=== PATIENT | male | born 1990 | race Caucasian/White ===

== ENCOUNTER 2017-09-02 05:38 | Emergency (ER) | payer BC ==
[2017-09-02] MEDS ORDERED: ONDANSETRON 4 MG/2 ML VIAL IVP ONE (05:42)
[2017-09-02] MEDS ORDERED: NS 1,000 ML IV ONE (05:42)
--- NOTE | 2017-09-02 05:47 | EDPHY ---
H & P Stated Complaint: CI Source: Patient, EMS - Personal History Current Tetanus/Diphtheria Vaccine: Unsure Current Tetanus Diphtheria and Acellular Pertussis (TDAP): Unsure - Medical/Surgical History Hx Asthma: No Hx Chronic Respiratory Disease: No Hx Diabetes: No Hx Cardiac Disease: No Hx Renal Disease: No Hx Cirrhosis: No Hx Alcoholism: No Hx HIV/AIDS: No Hx Splenectomy or Spleen Trauma: No Other PMH: ETOH abuse - Social History Smoking Status: Never smoked HPI/ROS: HPI CHIEF COMPLAINT: Alcohol intoxication, vomiting HISTORY OF PRESENT ILLNESS: This patient is a 26-year-old male, presents emergency room highly intoxicated with alcohol and vomiting. 911 was called to his private residence by his mom after she noticed that a small odor of alcohol from his room. She found him highly intoxicated unable stand 911 was called. Drinking liquor according to his mom. EMS arrived to find him highly intoxicated alcohol he did vomit once. He presents emergency room highly intoxicated alcohol he does have a hematoma of his left forehead. Otherwise atraumatic exam. It is reported by EMS that he is an alcoholic. His mom is not here at bedside yet. Upon arrival to the emergency room the patient is highly intoxicated with alcohol smells of alcohol horizontal beating nystagmus and slurring his speech. Unable to answer my questions appropriately. Past Medical History: Depression, GERD, alcoholism Past Surgical History: No recent surgery Social History: According to EMS alcohol use frequent. Family History: Noncontributory ROS REVIEW OF SYSTEMS: Limited due to patient's clinical state of alcohol intoxication. Exam Constitutional intoxicated, smells of alcohol triage nursing summary reviewed, vital signs reviewed, awake/alert. Eyes horizontal beating nystagmus consistent acute alcohol intoxication, pupils mid-range reactive light. HENT head/neck: Left eyebrow hematoma, otherwise atraumatic exam. moist mucus membranes, no epistaxis, neck supple/ no meningismus, no raccoon eyes. Respiratory clear to auscultation bilaterally, normal breath sounds, no respiratory distress, no wheezing. Cardiovascular rate normal, regular rhythm, no murmur, no edema, distal pulses normal. Gastrointestinal soft, non-tender, no rebound, no guarding, normal bowel sounds, no distension, no pulsatile mass. Genitourinary no CVA tenderness. Musculoskeletal no midline vertebral tenderness, full range of motion, no calf swelling, no tenderness of extremities, no meningismus, good pulses, neurovascularly intact. Skin pink, warm, & dry, no rash, skin atraumatic. Neurologic sleepy. awake, alert and oriented x 3, AAOx3, moves all 4 extremities equally, motor intact, sensory intact, CN II-XII intact, normal cerebellar, normal vision, slurring speech. Psychiatric intoxicated. Heme/Lymph/Immune no lymphadenopathy. Differential Diagnosis: Includes but is not limited to in a particular order acute alcohol intoxication, drug intoxication, dehydration, electrolyte disturbance, intracranial bleed, skull fracture. Medical Decision Making: Plan for this patient IV establishment with IV fluid bolus, Zofran for nausea, check serum alcohol level, check electrolytes, CT head , CT cervical spine for trauma. Monitor on profiling machine operator pulse ox. Monitor for worsening of condition versus sobriety. Re-evaluation: CT scan head/neck: Without contrast for trauma this is negative scans for acute traumatic injury. Of note the patient moved multiple times in the CT scanner. They had to take multiple images. Dr. Perez has reviewed the CT scans. No acute bleed skull fracture spinal abnormality. Patient's serum alcohol 6:31 a.m. is 303. 0633: Patient need time to sober from alcohol need to be re-evaluated. Serum alcohol level 303. Sodium is 150 slightly dry on exam. His CT scans of his head neck do not show any significant trauma. Patient signed over to Dr. Corrine Gan. Patient needs to sober. (Jean Carlos Phillips) 0910: Assessed patient. He is now awake, but somnolent and slurring his speech. He complains of a headache. He says he is interested in quitting drinking and I asked if he would like to detox at the [facility]. He says he has "quite the reputation there" and is reluctant to go back. When I ask what his plan is to quit drinking, he mentions going to in [place]. He was sober for 2.5 years, but isn't able to clearly tell me when he relapsed. His mother is currently not in the room, so I'm not sure if she is willing or able to help him with care at home or in securing placement at a different detox facility. We will involve case management. Ongoing discussion with case management, mother, patient. Mother is not comfortable taking him home. He is refusing to go to the [facility]. We can potentially admit him. He continues with slurred speech, ataxic gait. He is developing a black eye on the left. His mother tells me that he wanted to detox when she brought him in to the ED, however he is now stating that he does not want to detox. I do not think that he is able to clearly participate in this decision making. My hope is that he will decide to work towards sobriety when he is a bit more cogent. Unfortunately, he continued to state that he was not interested in sobriety. Although I had planned to admit him to the hospitalist service, I am now doubtful that this will be helpful. I was began with his mother, as he needs a sober goat driver and place to go. I will make certain that they have information about resources in the community. 1150: Patient ripped out his IV and has become verbally abusive. He is showing no interest in being involved in recovery. Without his active involvement, I do not feel admission here will be beneficial to him. I again suggested going to the [facility], but his mother has opted to take him home (she doubts that he would stay at the [facility]). (Corrine Gan) Constitutional: Initial Vital Signs Temperature (C) 36.7 C 09/02/17 05:40 Heart Rate 82 09/02/17 05:40 Respiratory Rate 16 09/02/17 05:40 Blood Pressure 104/87 H 09/02/17 05:40 O2 Sat (%) 98 09/02/17 05:40 O2 Delivery Mode Room Air Allergies/Adverse Reactions: No Known Allergies Allergy (Unverified 09/02/17 05:42) - Data Points Laboratory Results: Laboratory Results 09/02/17 05:45 09/02/17 08:35 Medications Given: Discontinued Medications Sodium Chloride (Ns) 1,000 mls @ 0 mls/hr IV EDNOW ONE; Wide Open PRN Reason: Protocol Stop: 09/02/17 05:43 Last Admin: 09/02/17 06:04 Dose: 1,000 mls Ondansetron HCl (Zofran) 4 mg IVP EDNOW ONE Stop: 09/02/17 05:43 Last Admin: 09/02/17 06:04 Dose: 4 mg Departure - Departure Disposition: Home, Routine, Self-Care Clinical Impression: Alcoholic intoxication Qualifiers: Complication of substance-induced condition: uncomplicated Qualified Code(s): F10.920 - Alcohol use, unspecified with intoxication, uncomplicated Condition: Good Instructions: Alcohol Intoxication (ED), Abuse of Alcohol (ED) Additional Instructions: Go to the [facility] if you wish to detox. Return to the ED for worsening of condition. Referrals: [facility] 24 Hours [Outside] - As per Instructions AA Hotline [Outside] - As per Instructions
[2017-09-02 05:51] VITALS: RESP 16; TEMP 98.1
[2017-09-02 05:56] LABS: % IMMATURE GRANULYOCYTES 0.3 % (0.0-1.1); ABSOLUTE IMMATURE GRANULOCYTES 0.02 10^3/uL (0.00-0.10); ADD DIFF? NO; ADD MORPH? NO; ADD SCAN? NO; ATYPICAL LYMPHOCYTE FLAG 0 (0-99); FRAGMENT RBC FLAG 0 (0-99); HEMATOCRIT 43.9 % (40.0-51.0); HEMOGLOBIN 15.6 g/dL (13.7-17.5); LEFT SHIFT FLG 0 (0-99); LIPEMIA HEMOLYSIS FLAG 90 (0-99); MEAN CELL HEMOGLOBIN 30.9 pg (27.9-34.1); MEAN CELL HEMOGLOBIN CONCENTR. 35.5 g/dL (32.4-36.7); MEAN CELL VOLUME 86.9 fL (81.5-99.8); MEAN PLATELET VOLUME 9.4 fL (8.7-11.7); PLATELET CLUMPS FLAG 20 (0-99); PLATELET COUNT 343 10^3/uL (150-400); RED BLOOD CELL COUNT 5.05 10^6/uL (4.40-6.38); RED CELL DISTRIBUTION WIDTH 13.4 % (11.5-15.2)
[2017-09-02 06:09] LABS: ALANINE AMINOTRANSFERASE 156 IU/L (21-72); ALBUMIN 4.5 g/dL (3.5-5.0); ALKALINE PHOSPHATASE 87 IU/L (38-126); ANION GAP 19 mEq/L (8-16); ASPARTATE AMINOTRANSFERASE 89 IU/L (17-59); BILIRUBIN,TOTAL 0.4 mg/dL (0.1-1.4); BILIRUBIN-CONJUGATED 0.1 mg/dL (0.0-0.5); BILIRUBIN-UNCONJUGATED 0.3 mg/dL (0.0-1.1); CALCIUM 9.4 mg/dL (8.5-10.4); CARBON DIOXIDE 26 mEq/l (22-31); CHLORIDE 105 mEq/L (97-110); GLOMERULAR FILTRATION RATE > 60; GLUCOSE 93 mg/dL (70-100); POTASSIUM 4.5 mEq/L (3.5-5.2); SODIUM 150 mEq/L (134-144); TOTAL PROTEIN 7.2 g/dL (6.3-8.2)
[2017-09-02 06:16] LABS: ETHANOL SERUM 303 mg/dL (0-10)
[2017-09-02 09:00] LABS: ANION GAP 15 mEq/L (8-16); CALCIUM 8.5 mg/dL (8.5-10.4); CARBON DIOXIDE 22 mEq/l (22-31); CHLORIDE 109 mEq/L (97-110); CREATININE 0.9 mg/dL (0.7-1.3); ETHANOL SERUM 253 mg/dL (0-10); GLOMERULAR FILTRATION RATE > 60; GLUCOSE 94 mg/dL (70-100); POTASSIUM 4.1 mEq/L (3.5-5.2); SODIUM 146 mEq/L (134-144)
[2017-09-02 10:34] VITALS: BP 121/57; PULSE 91; O2SAT 95
--- NOTE | 2017-09-02 12:31 | ASDISCHSUM ---
Discharge Information Plan Status:Home with No Needs Medically Cleared to Leave: Discharge Date:09/02/2017 12:04 PM CM D/C Disposition:Home, Routine, Self-Care ADT D/C Disposition:Home, Routine, Self-Care Projected Discharge Date:09/02/2017 12:04 PM Transportation at D/C:Family Discharge Delay Reason: Follow-Up Date:09/02/2017 12:04 PM Discharge Slot: Final Diagnosis: Placement Information Patient Contact Information Contact Name:UNA Relationship:Mother Address:[address] [place] [address] Work Phone: City:[facility] Phone: [facility] Code:[place] [address] Email: Financial Information Financial Class:HMO and PPO Plans Primary Plan Desc:[facility] FEDERAL PLAN Primary Plan Number:[id number] Secondary Plan Desc: Secondary Plan Number: Assessment Information LACE LACE Acuity / Level of Care Answers: No. Emergency dept visits in Answers: 1 last 6 months Score: 1 Date Signed: 09/02/2017 12:20 PM Electronically Signed By:Brooklynn Dominique RN [facility] CM Progress Note CM Note CM Note Notes: Spoke with patient and his mother, Maria Elena, at bedside. Patient is still intoxicated, slurring words and not able to ambulate safely without at least standby or one-person assist. Patient states he is not interested in treatment for alcohol abuse and wants to go home with his mother. Maria Elena would like resources and information on treatment centers and options if patient becomes interested and willing; these were provided including information on [facility], [facility], [facility] (pt specifically not open to catholic treatment options), etc. Maria Elena says patient has been hospitalized in the past (as recent as Jun 2017) for ETOH abuse and suicidal ideation. Patient moved back to [place] from [place] recently and is living with his mother and grandmother up [facility]. Patient is currently seeing a counselor and per mother, was doing well and not drinking until about a week ago. Patient was offered treatment options, a cab to at [facility] or to go home with his mother if she consented. Patient was still unable to communicate clearly, tell us where he was or ambulate safely without assistance so ED MD recommended admission until he was more sober. Patient was going to be admitted for observation but then apparently ripped out his own IV, became verbally abusive and insisted on going home with his mother. Patient was discharged home with Maria Elena. Date Signed: 09/02/2017 12:29 PM Electronically Signed By:Brooklynn Dominique RN Intervention Information
== END 2017-09-02 12:04 | disposition home or self-care (01) ==
LOC: UNDOADMOB 10:53
DX: F10.920 Alcohol use, unspecified with intoxication, uncomplicated (principal); E86.9 Volume depletion, unspecified
CPT/HCPCS: 96374; G0480

== ENCOUNTER 2017-09-25 08:51 | Emergency (ER) | payer BC ==
[2017-09-25 09:02] VITALS: BP 114/63; PULSE 93; RESP 18; TEMP 97.7; O2SAT 96
[2017-09-25] MEDS ORDERED: KETOROLAC 30 MG/1 ML SDV IVP ONE (09:14)
--- NOTE | 2017-09-25 09:16 | EDPHY ---
H & P Stated Complaint: Right hip pain Time Seen by Provider: 09/25/17 08:55 HPI/ROS: CHIEF COMPLAINT: Right buttock pain after rolling out of bed HISTORY OF PRESENT ILLNESS: 26-year-old male arrives by ambulance after he rolled out of bed this morning a height of approximately 1.5 ft onto his right buttock. He is complaining of right buttock pain reproducible range of motion, unable to bear weight. Denies head injury. Denies neck pain injury. Denies back pain injury. Denies straddle injury or genitalia injury. Denies peripheral paresthesia, weakness, numbness. No foot drop. No incontinence no retention. No saddle anesthesia. No seizure. He states that he was seen at [facility] a few days ago for a right wrist laceration when he fell against the piece of metal edging accidentally. Denies that this was intentional self-injury. REVIEW OF SYSTEMS: A ten point review of systems was performed and is negative with the exception of the items mentioned in the HPI PAST MEDICAL/SURGICAL HISTORY: History of alcohol use, last drink of alcohol 9: 00 p.m. last evening. SOCIAL HISTORY: Last drink of alcohol 9:00 p.m. last evening PHYSICAL EXAM 1) GENERAL: Well-developed, well-nourished, alert and oriented. Appears to be in no acute distress. Answering questions appropriately. Calm, cooperative 2) HEAD: Normocephalic, atraumatic 3) HEENT: Pupils equal, round, reactive to light bilaterally. Negative Horners. Nasopharynx, oropharynx, clear. No deformity or angulation of nose. No septal hematoma. No rhinorrhea. No oral trauma. No tongue injury or laceration. Ears bilaterally with normal tympanic membranes. No hemotympanum. No fluid or blood in the external auditory canal. No raccoon eyes. No Sy sign. Teeth are normally aligned with no gross malocclusion, TMJ bilaterally nontender, facial bones nontender including the zygomatic arch, maxilla mandible. 4) NECK: Posterior cervical spine is nontender, no stepoff, no effusion. Full range of motion which does not elicit any midline cervical spine pain, no posterior midline tenderness, no step-off. 5) LUNGS: Clear to auscultation bilaterally, no wheezes, no rhonchi, no retractions. No obvious signs of trauma. No chest wall pain. No flaring, no grunting. Moving symmetrically. No crepitus. 6) HEART: Regular rate and rhythm, 7) ABDOMEN: No guarding, no rebound, no focal tenderness, no peritoneal signs, no signs of trauma, no ecchymosis 8) MUSCULOSKELETAL: Right upper extremity well-healing laceration with sutures in place, no signs of infection. Neurovascular intact distally. Right lower extremity: No visible signs of trauma such as ecchymosis or erythema. Tender to palpation right inferior buttock. Greater trochanteric region, right inguinal region, nontender. No pain with axial loading of the acetabulum or range of motion of the femur on acetabulum. No effusion. No shortening or malrotation of the lower extremity. Distal DP PT pulses present and brisk with brisk cap refill. Remainder right lower extremities nontender with soft compartments, femur nontender. Otherwise, Moving all extremities, no focal areas of tenderness, no obvious trauma. 9) BACK: No midline vertebral tenderness, no fluctuance, no step-off, no obvious trauma, no visual or palpable abnormality. 10) SKIN: No laceration. No abrasion DIFFERENTIAL DIAGNOSIS: in no particular include but limited to pubic ramus fracture, hip fracture, sprain, strain - Personal History Current Tetanus/Diphtheria Vaccine: Yes Current Tetanus Diphtheria and Acellular Pertussis (TDAP): Yes - Medical/Surgical History Hx Asthma: No Hx Chronic Respiratory Disease: No Hx Diabetes: No Hx Cardiac Disease: No Hx Renal Disease: No Hx Cirrhosis: No Hx Alcoholism: No Hx HIV/AIDS: No Hx Splenectomy or Spleen Trauma: No Other PMH: ETOH abuse, - Social History Smoking Status: Heavy smoker Constitutional: Initial Vital Signs Temperature (C) 36.5 C 09/25/17 08:59 Heart Rate 93 09/25/17 08:59 Respiratory Rate 18 09/25/17 08:59 Blood Pressure 114/63 09/25/17 08:59 O2 Sat (%) 96 09/25/17 08:59 O2 Delivery Mode Room Air Allergies/Adverse Reactions: No Known Allergies Allergy (Unverified 09/02/17 05:42) Home Medications: Medication Instructions Recorded FLUoxetine HCL 09/25/17 LORAZEPAM 09/25/17 Synthroid 09/25/17 Medical Decision Making - Diagnostics Imaging Results: Imaging Impressions Hip X-Ray 09/25/17 09:11 Impression: Negative for fracture. ED Course/Re-evaluation: 9:53 a.m.: I received an unsolicited phone call from a physician studio assistant at [facility] recommending that the patient be placed on a 72 hr hold as his mother had called her at 5:00 a.m. today stating that he had expressed suicidal ideation. 9:58 a.m.: I spoke with the patient at this time regarding this as he, at no point, has expressed suicidal or homicidal ideation to me. I specifically inquired at this time about this and he adamantly denies suicidal or homicidal ideation. I discussed the conversation I had with [facility]. I requested whether he would consent for me to speak with mother and he does not provide me permission to speak mother to disclose his medical information. At this time I think the patient is sober and has decision-making capacity. At this time I do not think the patient meets 72 hr M1 hold criteria as he denies suicidal ideation, denies homicidal ideation, I do not think he is gravely disabled at this time. I discussed this with secondary supervising physician Dr. Clements Regarding his right posterior buttock pain. The x-ray shows no definitive fracture. I recommended a noncontrast pelvis CT to evaluate possible occult sacral or other fracture. Indications risks benefits discussed with patient and he verbalizes consent. 10:30 a.m.: We have not obtained the pelvis CT. He is requesting analgesia repeatedly. He was given Toradol previously. I discussed with him the hospital ALTO program. He is specifically requesting narcotics. I have declined this request at this time. At this time he was observed ambulating without assistance, was visibly upset, yelling. He did not make statements of self-harm or injury to others. He threatened to leave the ER at which point his IV was pulled by staff. He then walked out of the emergency department. He did not receive aftercare instructions or allow me to discuss this with him further, did not allow opportunity for further discussion or discussion of options. 10:40 a.m. I received an unsolicited phone call from the patient's mother who was upset the patient was not placed on an M1 hold and why he was allowed to walk out of the emergency department. Informed her that the patient did not consent to release medical information to her and I believe him to have decision -making capacity. I informed her that if she was concerned about the safety of her son to contact the [place] police department. - Data Points Medications Given: Discontinued Medications Ketorolac Tromethamine (Toradol) 15 mg IVP EDNOW ONE Stop: 09/25/17 09:15 Last Admin: 09/25/17 09:40 Dose: 15 mg Departure - Departure Disposition: Against Medical Advice Clinical Impression: Right hip pain Referrals: ABEL KAUFMAN [Other] - As per Instructions
== END 2017-09-25 10:50 | disposition left against medical advice (07) ==
LOC: EDUNIT#
DX: S79.911A Unspecified injury of right hip, initial encounter (principal); F17.200 Nicotine dependence, unspecified, uncomplicated; W06.XXXA Fall from bed, initial encounter
CPT/HCPCS: 96374; J1885